=== PATIENT | male | born 1975 | race Caucasian/White ===

== ENCOUNTER 2020-12-25 21:37 | Emergency (ER) | payer OTHER, SELFPAY ==
[2020-12-25 21:40] VITALS: BP 160/106; PULSE 120; RESP 20; TEMP 36.6; O2SAT 100
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
[2020-12-25] MEDS: IBUPROFEN 400 MG TABLET PO (22:05)
[2020-12-25] MEDS: ACETAMINOPHEN 325 MG TABLET PO (22:06)
[2020-12-25] MEDS: TET,DIPH,PERTUSS(ACELL),VAC/PF 0.5 ML SYRINGE IM (22:18)
[2020-12-25 22:57] VITALS: BP 157/86; PULSE 108; RESP 15; O2SAT 96
[2020-12-25 23:42] VITALS: BP 132/82; PULSE 102; RESP 16; O2SAT 96
== END 2020-12-26 00:25 | disposition home or self-care (01) ==
PROVIDERS: Emergency Provider Emergency Medicine
DX: S02.2XXA Fracture of nasal bones, initial encounter for closed fracture (principal); S20.219A Contusion of unspecified front wall of thorax, initial encounter; S00.01XA Abrasion of scalp, initial encounter; S80.212A Abrasion, left knee, initial encounter; S50.812A Abrasion of left forearm, initial encounter; S50.811A Abrasion of right forearm, initial encounter; Y04.2XXA Assault by strike against or bumped into by another person, initial encounter; Z23 Encounter for immunization
CPT/HCPCS: 70450; 71111; 90471; 99284; 90715